=== PATIENT | female | born 1955 | race Caucasian/White ===

== ENCOUNTER 2019-07-16 23:58 | Emergency (ER) | payer MEDICAID, OTHER ==
[~2019-07-16] VITALS: Ht 157.5 cm; Wt 80.0 kg
[2019-07-17] MEDS ORDERED: PROCHLORPERAZINE MALEATE 10MG TABLET PO ONE (01:15)
[2019-07-17] MEDS ORDERED: DIPHENHYDRAMINE 25MG CAPSULE PO ONE (01:15)
[2019-07-17] MEDS ORDERED: IBUPROFEN 600MG TABLET PO ONE (01:15)
[2019-07-17] MEDS ORDERED: DIAZEPAM 5 MG TABLET PO ONE (02:30)
[2019-07-17] MEDS ORDERED: HYDROCODONE/ACETAMINOPHEN 10/325MG TABLET PO ONE (02:30)
[2019-07-17 03:59] VITALS: BP 124/61
== END 2019-07-17 04:00 | disposition home or self-care (01) ==
LOC: ER 23:58
DX: I10 Essential (primary) hypertension (principal); R51 Headache; E78.00 Pure hypercholesterolemia, unspecified; E05.90 Thyrotoxicosis, unspecified without thyrotoxic crisis or storm; I25.10 Atherosclerotic heart disease of native coronary artery without angina pectoris
CPT/HCPCS: 93005; 99284; Q0163; Q0164